=== PATIENT | male | born 1990 | race Caucasian/White ===

== ENCOUNTER 2017-08-07 20:12 | Emergency (ER) | payer OTHER, MEDICAID ==
[~2017-08-07] VITALS: Ht 165.1 cm; Wt 68.0 kg
[2017-08-07 20:21] VITALS: BP 118/70
[2017-08-07] MEDS ORDERED: NAPROSYN500 MG PO (20:35)
[2017-08-07] MEDS ORDERED: PENICILLIN VK500 MG PO (20:35)
== END 2017-08-07 20:41 | disposition home or self-care (01) ==
LOC: M.ERS 20:12
DX: K02.9 Dental caries, unspecified (principal); K01.1 Impacted teeth; F17.200 Nicotine dependence, unspecified, uncomplicated